=== PATIENT | male | born 2000 | race Two or more races ===

== ENCOUNTER 2021-07-26 17:04 | Emergency (ER) | payer MEDICAID ==
[~2021-07-26] VITALS: Ht 165.1 cm; Wt 65.0 kg
[2021-07-26 17:09] VITALS: BP 123/87
[2021-07-26] MEDS ORDERED: TETANUS, DIPHTHERIA, PERTUSSIS VAC/PF 0.5ML (>7YR OLD) IM ONE (21:15)
[2021-07-26] MEDS ORDERED: IBUPROFEN 600MG TABLET PO ONE (22:30)
[2021-07-26] MEDS ORDERED: LIDOCAINE HCL 1% 20ML VIAL (Pyxis) INJ INFIL ONE (23:15)
[2021-07-26] MEDS ORDERED: IBUP-2029 MT (23:52)
[2021-07-26] MEDS ORDERED: CEPH500C2 MT (23:52)
== END 2021-07-27 00:35 | disposition home or self-care (01) ==
LOC: ER 17:04
DX: S61.012A Laceration without foreign body of left thumb without damage to nail, initial encounter (principal); W26.8XXA Contact with other sharp object(s), not elsewhere classified, initial encounter; Y93.89 Activity, other specified; Y92.89 Other specified places as the place of occurrence of the external cause; Y99.8 Other external cause status
CPT/HCPCS: 12002; 90471; 90715; 99283; J3490

== ENCOUNTER 2021-08-09 18:57 | Emergency (ER) | payer MEDICAID ==
[~2021-08-09] VITALS: Ht 157.5 cm; Wt 60.0 kg
[~2021-08-09 18:57] MED LIST: CEPH500C2 MT; IBUP-2029 MT
[2021-08-09 20:43] VITALS: BP 126/68
== END 2021-08-09 20:43 | disposition home or self-care (01) ==
LOC: ER 18:57
DX: S61.012D Laceration without foreign body of left thumb without damage to nail, subsequent encounter (principal); Z48.02 Encounter for removal of sutures; X58.XXXD Exposure to other specified factors, subsequent encounter
CPT/HCPCS: 99281